=== PATIENT | male | born 1975 | race Caucasian/White ===

== ENCOUNTER 2017-02-10 08:12 | Inpatient (IN) | payer OTHER ==
--- NOTE | ~2017-02-10 | DS ---
Unit #: [id number] #: [id number] Patient: NASIR SANTAMARIA [id number] [facility] [address] [place] [address] [id number] MR#: [id number] NAME: NASIR SANTAMARIA. ROOM: P181 Age: 41 Sex: M Admission Date: 02/10/2017 : 1975 Discharge Date: 02/13/2017 Attending Physician: Stanton Blancas M.D. Primary Care Physician: Kvng Bueno A.P.R.N. DISCHARGE SUMMARY REASON FOR ADMISSION Detox. DIAGNOSTIC STUDIES LABORATORY RESULTS: Remarkable for urine drug screen, positive for opioid and benzodiazepine. HOSPITAL COURSE The patient was admitted to inpatient unit on 02/10/2017 and discharged on 02/13/2017. The patient was treated on the inpatient unit with group therapy, individual therapy, medication management, chemical dependency group, detox protocol, and detox monitoring. The patient responded well. Subsequently, the patient was discharged with a plan to follow up in outpatient clinic. DISCHARGE MEDICATIONS Seroquel 100 mg at bedtime for mood stabilization. DISCHARGE DIAGNOSES Psychiatric: Opioid use disorder, severe, F11.20; sedative hypnotic use disorder, severe, F13.20; mood disorder, not otherwise specified, F32.9. Secondary diagnosis: Deferred. Medical diagnosis: History of hepatitis C. Stressors: Psychosocial stressors. DISCHARGE INSTRUCTIONS The patient to follow up in outpatient clinic as per social science professor. CONDITION ON DISCHARGE The patient was pleasant and cooperative. Denied any psychotic symptom or any suicidal ideation. PROGNOSIS Guarded. DIET AND ACTIVITY As tolerated. Dictated by... Unit #: [id number] #: [id number] Patient: NASIR SANTAMARIA Yris Valdes/randy TD: 02/13/2017 22:27 JOB #: [id number] DISCHARGE SUMMARY Page 1 of 1 X Stanton Blancas MD X DISCHARGE SUMMARY
--- NOTE | ~2017-02-10 | PN ---
Unit #: [id number] #: [id number] Patient: NASIR WEEKS [id number] [facility] [address] [place] [address] [id number] MR#: [id number] NAME: NASIR WEEKS. ROOM: P181 Age: 41 Sex: M Admission Date: 02/10/2017 : 1975 Attending Physician: Stanton Blancas M.D. Admitting Physician: Stanton Blancas M.D. Primary Care Physician: Gen Estevez PROGRESS NOTES DATE OF SERVICE: 02/12/2017 DISCUSSION Connor Weeks is a 41-year-old male, seen on 02/12/2017. The patient reports that he is still feeling sick, but still feeling anxious, nervous, withdrawn, isolative, and guarded. The patient's vital signs; temperature 98.5, heart rate 86, and blood pressure 119/88. The patient still on detox protocol. REVIEW OF SYSTEMS Complete review of systems unremarkable. MENTAL STATUS EXAMINATION General appearance, the patient dressed casually. Attention span and concentration, fair. Oriented in place and person. Mood and affect, labile. Speech, monotone. Thought process, concrete. The patient denied any thoughts of harming self or others, but guarded. Recent and remote memory, poor. Insight and judgment, poor. DIAGNOSES Opioid use disorder, severe; sedative hypnotic use disorder, severe; and mood disorder, not otherwise specified. ASSESSMENT AND PLAN Advised to continue with current medication and therapeutic protocol. If needed, consider further adjustment of medication. Dictated by... Yris Valdes/randy TD: 02/13/2017 20:04 JOB #: [id number] Unit #: [id number] #: [id number] Patient: NASIR WEEKS [place] PROGRESS NOTES Page 1 of 1 X Stanton Blancas MD PROGRESS NOTE
--- NOTE | ~2017-02-10 | PN ---
Unit #: [id number] #: [id number] Patient: NASIR WEEKS [id number] [facility] [address] [place] [address] [id number] MR#: [id number] NAME: NASIR WEEKS. ROOM: P181 Age: 41 Sex: M Admission Date: 02/10/2017 : 1975 Attending Physician: Stanton Blancas M.D. Admitting Physician: Stanton Blancas M.D. Primary Care Physician: Gen Estevez PROGRESS NOTES DATE OF SERVICE: 02/11/2017 DISCUSSION Mr. Nasir Weeks is a 41-year-old male, seen on 02/11/2017. The patient interviewed, chart reviewed, and obtained information from nursing staff. The patient reports that he is still feeling very sick, nausea, anxiety, difficulty in keeping his food down, nervousness. The patient's vital signs; temperature is 98.3, pulse 110, blood pressure 126/90. REVIEW OF SYSTEMS A complete review of systems is unremarkable. MENTAL STATUS EXAMINATION General appearance; the patient dressed casually. Attention span and concentration, fair. Oriented in place and person. Mood and affect; sad and depressed. Speech, regular rate. Thought process, goal directed. The patient denied any thoughts of harming self or others, but sad, depressed, anxious, withdrawn, isolative, having above-mentioned symptoms. Recent and remote memory, poor. Insight and judgment, poor. DIAGNOSES Opioid use disorder, severe; sedative-hypnotic use disorder, severe; mood disorder, not otherwise specified. ASSESSMENT AND PLAN Advised to continue with current medication and treatment protocol. If needed, consider further adjustment of medication. Dictated by... Yris Valdes/randy TD: 02/13/2017 16:45 JOB #: [id number] Unit #: [id number] #: [id number] Patient: NASIR WEEKS PROGRESS NOTES Page 1 of 1 X Stanton Blancas MD X PROGRESS NOTE
--- NOTE | ~2017-02-10 | HP ---
Unit #: [id number] #: [id number] Patient: NASIR SANTAMARIA [id number] [place] [address] [id number] MR#: [id number] NAME: NASIR SANTAMARIA. ROOM: P181 Age: 41 Sex: M Admission Date: 02/10/2017 : 1975 Attending Physician: Stanton Blancas M.D. Admitting Physician: Stanton Blancas M.D. Primary Care Physician: Kvng Bueno A.P.R.N. HISTORY AND PHYSICAL HISTORY OF PRESENT ILLNESS Nasir is a 41 year old admitted to [facility] because of his continued polysubstance abuse which includes benzodiazepines and IV heroin. He has had other admissions to this facility. PAST MEDICAL HISTORY 1. Long history of poly illicit substance abuse to include IV heroin 2. Hepatitis C. 3. History of withdrawn seizures. PAST SURGICAL HISTORY Nothing reported. ALLERGIES Penicillin SOCIAL HISTORY Smokes one pack per day. Denies alcohol. Admits to a long history of illicit substance abuse to include benzodiazepines and IV heroin. FAMILY HISTORY Medically noncontributory. REVIEW OF SYSTEMS CONSTITUTIONAL: No fever or chills. HEENT: Denies any sore throat, ear pain or runny nose. CARDIOVASCULAR: Denies chest pain, irregular heart rhythm or palpitations. CHEST: Denies shortness of breath or cough. No hemoptysis. GASTROINTESTINAL: Denies nausea, vomiting, diarrhea or chronic constipation. ENDOCRINE: Denies history of increased thirst or urination. No recent significant weight loss or gain. GENITOURINARY: Denies dysuria, frequency, or hematuria. SKIN: Denies any rashes. HEMATOLOGIC: Denies history of increased bleeding or bruising. MUSCULOSKELETAL: Denies any hot, swollen joints. No generalized muscle pain. NEUROLOGIC: Denies problems with vision or speech. No frequent, severe headaches. No numbness, tingling or weakness in any extremities. Denies loss of bladder or bowel control. CURRENT MEDICATIONS Unit #: [id number] #: [id number] Patient: NASIR SANTAMARIA Detox protocol PHYSICAL EXAMINATION GENERAL: Alert, well-nourished, in no apparent distress. VITAL SIGNS: Blood pressure 132/90, heart rate 80, respirations 16, temperature 98.6. WEIGHT: 253 pounds. HEIGHT: 6'4". SKIN: Warm and dry without rash or lesion. HEENT: Normocephalic. TMs not viewed. Oral and nasal passages clear. Conjunctivae clear. Pupils equal, round and reactive to light and accommodation. Extraocular movements intact. NECK: Supple without lymphadenopathy or thyromegaly. HEART: Regular rate and rhythm without murmur. LUNGS: Clear. ABDOMEN: Soft, nontender. : Not done. EXTREMITIES: No evidence of cyanosis, clubbing or edema. Moves all extremities without focal deficit. NEUROLOGICAL: Grossly within normal limits. Cranial Nerves: II: Visual zaragoza are intact. III, IV AND : Extraocular movements are intact. Pupils are equal, round and reactive to light. V: Facial sensation is grossly normal. VII: Facial movements and expression are normal. VIII: Auditory acuity grossly intact. IX, X: Uvula is midline. Phonation is normal. XI: Patient shrugs shoulders and turns head normally. XII: Tongue protrudes in the midline. Sensory and Motor Function: Sensory and motor sensation is grossly normal. Motor: moves all extremities well. Coordination: Gait is normal. Deep Tendon Reflexes: Intact. IMPRESSION Psychiatric admission RECOMMENDATIONS PSYCHIATRIC: Per psychiatrist. MEDICAL: I see no contraindications to participating in facility's activities. MEDICAL PROGNOSIS Good. MEDICAL CONDITION Stable. Dictated by... Sharri Cole P.A.-C. for Yris Preciado/marilyn TD: 02/11/2017 00:21 JOB #: [id number] Unit #: [id number] #: [id number] Patient: NASIR SANTAMARIA HISTORY AND PHYSICAL Page 1 of 1 X Sharri Cole HISTORY AND PHYSICAL
--- NOTE | ~2017-02-10 | PA ---
Unit #: [id number] #: [id number] Patient: NASIR SANTAMARIA [id number] [facility] [address] [place] [address] [id number] MR#: [id number] NAME: NASIR SANTAMARIA. ROOM: P181 Age: 41 Sex: M Admission Date: 02/10/2017 : 1975 Date of Assessment: 02/10/2017 Attending Physician: Stanton Blancas M.D. Admitting Physician: Stanton Blancas M.D. Primary Care Physician: Kvng Bueno A.P.R.N. PSYCHIATRIC ASSESSMENT INFORMANTS The patient's reliability, fair; chart reliability, good. CHIEF COMPLAINT Detox from heroin and Xanax. HISTORY OF PRESENT ILLNESS Mr. Dang is a 41-year-old white male, presented with the above-mentioned complaint. The patient reported history of previous treatment at [facility] in the past, lives at home with [id number] and . The patient reported needing detox from Xanax and heroin. The patient reported using IV heroin daily, the last use was one day ago. The patient reported using 5 to 6 Xanax, last use 3 days ago. The patient reported 15 to 20 weekly. The patient reported last about 2 months ago. The patient reported that he was sober for 90 days after going to [facility]. The patient reports that he ran out of Seroquel that was prescribed, but does not have any outpatient appointment and started getting worse, feeling worse. The patient reported that he wanted to get off from all the drugs. The patient reported having withdrawal symptoms such as headache, nausea, diarrhea, irritability, restlessness, tremors. The patient denied any psychotic symptom, suicidal ideation or homicidal ideation, feeling sad and depressed. Needing inpatient admission at this time for psychiatric stabilization. PAST PSYCHIATRIC HISTORY Remarkable for history of previous treatment in 02/2016 and 09/2016. History of residential program such as [facility]. FAMILY HISTORY AND SOCIAL HISTORY The patient has a good support system. No history of any abuse. MEDICAL HISTORY Remarkable for history of hepatitis C, history of withdrawal seizure. Musculoskeletal; muscle strength and tone, no atrophy or abnormal movement. Gait normal. MEDICATIONS None. ALLERGIES To penicillin. SUBSTANCE ABUSE HISTORY Unit #: [id number] #: [id number] Patient: NASIR SANTAMARIA The patient reported tobacco use, age of onset 6; alcohol, age of onset 17; marijuana, age of onset 17; crack cocaine, age of onset 17; LSD age of onset 18; opioid, age of onset 36; amphetamine, age of onset 20; benzodiazepine, age of onset 32; methadone, age of onset 32. The patient reported history of blackout, history of hepatitis, withdrawal symptom, IV drug use, tremor, sleep problems, restlessness, muscle cramp, abdominal cramping, withdrawal symptom. REVIEW OF SYSTEMS HEENT: Eyes, clear. Ears, nose, mouth, and throat; clear. CARDIOVASCULAR: Unremarkable. RESPIRATORY: Unremarkable. GI: Unremarkable. : Unremarkable. SKIN: Unremarkable. LYMPH NODE: Unremarkable. NEUROLOGIC: Unremarkable. ENDOCRINE: Unremarkable. HEMATOLOGIC: Unremarkable. ALLERGIC/IMMUNOLOGIC: Unremarkable. MUSCULOSKELETAL: Muscle strength and tone, no atrophy or abnormal movement. Gait normal. MENTAL STATUS EXAMINATION CONSTITUTIONAL: Measurement of vital signs; temperature 98.2, pulse 84, respirations 16, oxygen saturation 97%, and blood pressure 132/91. Height 6 feet 4 inches, weight 253 pounds. GENERAL APPEARANCE: The patient dressed casually. The patient did not show any facial deformity. MUSCULOSKELETAL: Please see above. PSYCHIATRIC EXAMINATION Description of speech; regular rate, normal volume. Description of thought process, goal directed. Description of association, intact. Description of abnormal psychotic thinking; the patient denied any hallucination or delusions. Denied any suicidal or homicidal ideation, but mood lability. Description of the patient's judgment; concerning everyday activity, poor. Social situation, poor. Concerning psychiatric condition, poor. Complete mental status examination; oriented in time, place, and person. Recent and remote memory, fair. Attention span and concentration, fair. Language, able to name object and repeat phrases. Fund of knowledge, aware of current event and passive vocabulary intact. Mood and affect, sad and dysphoric. Insight and judgment, fair to poor. ASSETS AND LIABILITIES Assets; the patient is articulate, able to take care of his ADL. Liability; history of substance abuse, depression. ADMITTING DIAGNOSES Psychiatric: 1. Opioid use disorder, severe, F11.20. 2. Sedative hypnotic use disorder, severe, F13.20. 3. Mood disorder, not otherwise specified, F32.9. Secondary diagnosis: Deferred. Medical diagnosis: History of hepatitis C. Unit #: [id number] #: [id number] Patient: NASIR SANTAMARIA Stressors: Psychosocial stressors. PSYCHIATRIC PLAN AND TREATMENT GOAL 1. Advised to admit the patient on the inpatient unit. Provide safe, supportive, and structured environment. 2. Ordered labs; CBC, CMP, UA, and UDS. 3. Detox protocol and detox monitoring. Advised to resume home medication, Seroquel 100 mg at bedtime. If needed, consider further adjustment of medication. The patient to attend all the programing on the inpatient unit. Treatment goal to attain euthymic mood, gain insight into his problem, and learn coping skills. DISCHARGE PLAN Plan to stabilize the patient and consider followup in outpatient program. ESTIMATED LENGTH OF STAY 5 days. Dictated by... Stanton Blancas M.D. BOBBI/randy TD: 02/11/2017 03:32 JOB #: [id number] PSYCHIATRIC ASSESSMENT Page 1 of 1 X Stanton Blancas MD X PSYCHIATRIC ASSESSMENT
[~2017-02-10 08:12] MED LIST: CLEOCIN HCL300 M1 PO; CLONAZEPAM0.5 MG PO; IBUPROFEN PO; NO MEDICATIONS; PEN-VEE K PO; SUBOXONE 8 MG-1 EACH SL; SUBUTEX PO; VOLTAREN50 MG PO; VOLTAREN75 MG PO
[2017-02-11 09:53] LABS: BASOPHIL% 0.5 % (0-2.5); EOSINOPHIL# 0.1 X10e3 (0-0.7); HEMATOCRIT 48.6 % (38.0-50.0); HEMOGLOBIN 16.3 gm/dL (13.0-16.0); LYMPHOCYTE# 2.3 X10e3 (1.0-3.5); LYMPHOCYTE% 23.8 % (17.0-45.0); MEAN CELL VOLUME 86.8 FL (83-96); MEAN CORPUSCULAR HEMOGLOBIN 29.1 PG (28-34); MEAN CORPUSCULAR HGB CONC 33.5 g/dL (30-36); MEAN PLATELET VOLUME 8.5 FL (6.5-11.5); MONOCYTE# 0.6 X10e3 (0-1.0); MONOCYTE% 6.5 % (3.0-12.0); NEUTROPHIL# 6.6 X10e3 (1.5-7.1); NEUTROPHIL% 68.2 % (40-75); PLATELET COUNT 194 X10e3 (140-420); RED CELL DISTRIBUTION WIDTH 13.3 % (11.0-15.5); WHITE BLOOD COUNT 9.6 X10e3 (4.0-10.5)
[2017-02-11 10:15] LABS: DIFF IND NO
[2017-02-11 10:18] LABS: ALBUMIN SERUM 3.9 g/dL (3.5-5.0); BILIRUBIN,TOTAL 0.5 mg/dL (0.2-2.0); BUN/CREATININE RATIO 18.57; CALCIUM SERUM 9.4 mg/dL (8.4-10.2); CREATININE SERUM 0.7 mg/dL (0.6-1.4); GLOM FILT RATE Estimated 118.9 mL/min (>60); POTASSIUM 4.3 mmol/L (3.5-5.1); PROTEIN TOTAL SERUM 7.1 g/dL (6.0-8.3)
[2017-02-12 12:50] LABS: URINE APPEARANCE CLEAR; URINE BILIRUBIN NEG (NEG); URINE BLOOD NEG (NEG); URINE COLOR YELLOW; URINE GLUCOSE NEG (NEG); URINE KETONE NEG (NEG); URINE LEUKOCYTE ESTERASE NEG (NEG); URINE NITRATE NEG (NEG); URINE PH 7.5 (5-8); URINE PROTEIN NEG (NEG); URINE SPECIFIC GRAVITY 1.012 (1.003-1.035); URINE UROBILINOGEN 0.2 MG/DL (NEG)
[2017-02-12 13:54] LABS: AMPHETAMINE NEG (NEG); BARBITURATES NEG (NEG); BENZODIAZEPINES POS (NEG); COCAINE NEG (NEG); MARIJUANA NEG (NEG); OPIATES POS (NEG); TRICYCLIC ANTIDEPRESSANTS NEG (NEG); U METHADONE NEG (NEG)
== END 2017-02-13 09:36 | disposition home or self-care (01) | DRG 897 ==
LOC: P1E 09:44
PROVIDERS: Psychiatry & Neurology Psychiatry
PROC: HZ2ZZZZ Detoxification Services for Substance Abuse Treatment (ICD-10-PCS; principal; 2017-02-10)
DX: F11.20 Opioid dependence, uncomplicated (principal); F13.20 Sedative, hypnotic or anxiolytic dependence, uncomplicated; Z88.0 Allergy status to penicillin; B19.20 Unspecified viral hepatitis C without hepatic coma; F17.210 Nicotine dependence, cigarettes, uncomplicated; F39 Unspecified mood [affective] disorder
CPT/HCPCS: 80053; 80307; 81003; 85025; 86592